=== PATIENT | female | born 1995 | race Caucasian/White ===

== ENCOUNTER 2024-05-06 10:58 | Emergency (ER) | payer BC, SELFPAY ==
--- NOTE | ~2024-05-06 | XR_ITS ---
EXAMINATION: XR abdomen/kub 1V DATE: 05/06/2024 12:12 INDICATION: Mid abdominal pain. Left lower quadrant abdominal pain. TECHNIQUE: A supine view of the abdomen on 2 radiographs was obtained. COMPARISON: None. FINDINGS: There are no dilated loops of bowel. There is a small volume of stool in the colon. IMPRESSION: 1. Normal bowel gas pattern. Reviewed, dictated and finalized at location A.
[2024-05-06 11:23] VITALS: BP 114/74; PULSE 95; RESP 16; TEMP 36.8; O2SAT 100
--- NOTE | 2024-05-06 11:36 | ED.ABDPAIN ---
HPI - Abdominal Pain General Chief Complaint: Abdominal Pain Stated Complaint: Stomach Pain Time Seen by Provider: 05/06/24 11:36 Source: patient Mode of arrival: ambulatory Limitations: no limitations History of Present Illness HPI narrative: Ruiz is a 29-year-old female patient presenting to the clinic today with complaints of abdominal pain x3 days. She reports symptoms started with bloating and some pain in the epigastric area and now has gone down to the mid abdomen. She reports her symptoms are slightly improved but she is still concerned that she may have something going on. Last bowel movement was last night. She states this was normal for the patient. Patient has had history of constipation recently. No history of IBS, IC, or Crohn's. She is currently on her menses and denies chance of . Denies any urinary symptoms. No nausea ,vomiting, or diarrhea. Related Data Allergies Allergy/AdvReac Type Severity Reaction Status Date / Time Sulfa (Sulfonamide Allergy Hives Verified 05/06/24 11:52 Antibiotics) Review of Systems Review of Systems: Pertinent positives per HPI. Patient denies any fever, chills, rash, headache, visual changes, dizziness, cough, runny nose, sore throat, shortness of breath, chest pain, palpitations, nausea, vomiting, diarrhea, constipation, or any urinary issues. PMFSH Comments At the time of my signature, I reviewed and agree with the nursing past medical, surgical, social, and family history. There is no relevant family history pertinent to the patient complaint. Exam Narrative: General: Well-developed, well nourished, in no apparent distress. Head: Normocephalic, atraumatic. Cardio: Regular rate and rhythm, s1 and s2 normal, no murmur appreciated. Resp: Clear to auscultation bilaterally, no rhonchi, rales, wheezing or rubs. Abdomen: Soft, pliable, bowel sounds present in all quadrants, tender to palpation over the mid abdomen and epigastric area as well as the left upper quadrant, no organomegly, no CVAT tenderness. Course Course Emergency Course: Portions of this record may have been created with voice recognition software. Level of Care: Express Care Visit Vital Signs Vital signs: Vital Signs Temperature 36.8 C 05/06/24 11:23 Pulse Rate 95 05/06/24 11:23 Respiratory Rate 16 05/06/24 11:23 Blood Pressure 114/74 05/06/24 11:23 Pulse Oximetry 100 05/06/24 11:23 Temperature 36.8 C 05/06/24 11:23 Pulse Rate 95 05/06/24 11:23 Respiratory Rate 16 05/06/24 11:23 Blood Pressure 114/74 05/06/24 11:23 Pulse Oximetry 100 05/06/24 11:23 Vital signs reviewed MDM - Abdominal Pain MDM Narrative Medical decision making narrative: At the time of visit patient is resting comfortably on the exam table. Patient appears to be nontoxic. Diagnostics: KUB was negative for any sign of constipation, obstruction, or mass. She does have small amount of stool in the colon with a normal bowel gas pattern. Plan: I suspect patient has generalized abdominal pain possibly due to GERD. Will send in prescription for omeprazole and have her follow-up with her primary care doctor for further evaluation if symptoms persist. Supportive measures were discussed with the patient and they voiced understanding discharge instructions and agrees to treatment plan. Return precautions reviewed Differential Diagnosis Differential diagnosis: Likely abdominal pain, acute appendicitis, calculus of kidney, constipation, diverticulitis, endometriosis, gastroenteritis, pancreatitis and small bowel obstruction Imaging Data Radiologist's impression: ITS Impressions Abdomen X-Ray 05/06/24 12:16 IMPRESSION: 1. Normal bowel gas pattern. Discharge Plan Discharge Clinical Impression: Abdominal pain Patient Disposition: Home, Self-Care Condition: Stable Instructions: Antibiotic Form, GERD (Gastroesophageal Reflux Disease) (ED), Abdomin
== END 2024-05-06 12:29 | disposition home or self-care (01) ==
PROVIDERS: Emergency Provider Nurse Practitioner Family; PCP Nurse Practitioner Family
DX: R10.13 Epigastric pain (principal)
CPT/HCPCS: 74018; 99203; G0463